=== PATIENT | female | born 1955 | race Caucasian/White ===

== ENCOUNTER 2017-08-11 16:04 | Observation (INO) | payer BC ==
[~2017-08-11] VITALS: Ht 170.2 cm; Wt 88.9 kg
[2017-08-11 16:27] LABS: BASOPHILS % (AUTO) 0.3 % (0.0-5.0); EOSINOPHILS % (AUTO) 0.2 % (0.0-8.0); HEMATOCRIT 35.7 % (36-48); MEAN CORPUSCULAR HEMOGLOBIN 30.7 pg (27.0-33.0); MEAN CORPUSCULAR HGB CONC 34.4 g/dL (32.0-36.0); MEAN CORPUSCULAR VOLUME 89.1 fL (79-99); MONOCYTES % (AUTO) 3.9 % (3.0-13.0); NEUTROPHILS % (AUTO) 68.6 % (40.0-77.0); PLATELET COUNT (AUTO) 265 K/uL (130-400); RED CELL DISTRIBUTION WIDTH 13.1 % (11.0-15.5); WHITE BLOOD COUNT (AUTO) 8.3 K/uL (4.8-10.8)
[2017-08-11 16:39] LABS: CREATININE 1.3 mg/dL (0.5-1.5)
[2017-08-11 16:40] LABS: INR 0.98 (0.85-1.15); PARTIAL THROMBOPLASTIN TIME 23.6 SEC (26.3-35.5); PROTHROMBIN TIME 10.3 SEC (9.6-11.6)
[2017-08-11 16:52] LABS: ALBUMIN 4.4 g/dL (3.5-5.0); BILIRUBIN,TOTAL 0.3 mg/dL (0.2-1.0); TOTAL PROTEIN, SERUM 8.2 g/dL (6.0-8.3)
[2017-08-11] MEDS ORDERED: ASPIRIN 325 MG TABLET ONE (17:12)
[2017-08-11] MEDS ORDERED: MAG HYDROX/AL HYDROX/SIMETH ES 30 ML SUSP UDCUP ONE (17:12)
[2017-08-11] MEDS ORDERED: NITROGLYCERIN 0.4 MG SL TAB SL ONE (17:13)
[2017-08-11] MEDS ORDERED: NITROGLYCERIN 1GM/1 INCH PACKET TD ONE (18:45)
[2017-08-11 20:01] VITALS: BP 135/59
[2017-08-11 22:57] LABS: CREATINE KINASE MB 0.7 ng/mL (0.5-3.6); CREATINE KINASE, TOTAL 80 U/L (21-232); MYOGLOBIN 47 ng/mL (10-92); TROPONIN I < 0.04 ng/mL (0.00-0.06)
[2017-08-11 23:49] VITALS: BP 123/54
[2017-08-12] MEDS ORDERED: LEVO125 PO (00:46)
[2017-08-12] MEDS ORDERED: METO50TA18 PO (00:47)
[2017-08-12] MEDS ORDERED: HYDR-3422 PO (00:47)
[2017-08-12] MEDS ORDERED: VENL150C2 PO (00:47)
[2017-08-12] MEDS ORDERED: METR500T PO (00:47)
[2017-08-12] MEDS ORDERED: POTA20TA10 PO (00:47)
[2017-08-12] MEDS ORDERED: MULT-1192 PO (00:47)
[2017-08-12] MEDS ORDERED: GLUC-148 PO (00:47)
[2017-08-12] MEDS ORDERED: CYCL10TA7 PO (00:47)
[2017-08-12] MEDS ORDERED: NAPR220C15 PO (00:47)
[2017-08-12] MEDS ORDERED: GINK30CA3 PO (00:47)
[2017-08-12] MEDS ORDERED: BUTA1CAP49 PO (00:47)
[2017-08-12] MEDS ORDERED: LISI1TAB13 PO (00:47)
[2017-08-12] MEDS ORDERED: MAGN30TA2 PO (00:47)
[2017-08-12] MEDS ORDERED: ALPR1TAB2 PO (00:47)
[2017-08-12] MEDS ORDERED: CHOL100046 PO (00:47)
[2017-08-12] MEDS ORDERED: ONDANSETRON HCL MDV 20ML 2 MG/ML VIAL IVP PRN (01:00)
[2017-08-12] MEDS ORDERED: POTASSIUM CHLORIDE 20MEQ/100ML 100 ML IV PRN (01:00)
[2017-08-12] MEDS ORDERED: ACETAMINOPHEN 325 MG TAB PO PRN (01:00)
[2017-08-12] MEDS ORDERED: LACTULOSE 20 GM/30 ML UDCUP PO PRN (01:00)
[2017-08-12] MEDS ORDERED: POTASSIUM CHLORIDE 20 MEQ ERTAB PO PRN (01:00)
[2017-08-12] MEDS ORDERED: POTASSIUM CHLORIDE 10% ELIXIR 20 MEQ/15 ML UDCUP PO PRN (01:00)
[2017-08-12] MEDS ORDERED: LIDOCAINE HCL-MPF 1% 2ML VIAL IVP PRN (01:00)
[2017-08-12] MEDS ORDERED: IPRATROPIUM/ALBUTEROL SULFATE 3 ML SOLUTION IH PRN (01:00)
[2017-08-12] MEDS ORDERED: HYDRALAZINE HCL 20 MG/ML VIAL IV PRN (01:00)
[2017-08-12 03:37] VITALS: BP 132/51
[2017-08-12 04:20] LABS: HEMATOCRIT 32.4 % (36-48); MEAN CORPUSCULAR HGB CONC 35.1 g/dL (32.0-36.0); MEAN CORPUSCULAR VOLUME 88.2 fL (79-99); PLATELET COUNT (AUTO) 217 K/uL (130-400); RED BLOOD CELL COUNT(AUTO) 3.68 MIL/uL (4.00-5.50); RED CELL DISTRIBUTION WIDTH 13.3 % (11.0-15.5); WHITE BLOOD COUNT (AUTO) 5.2 K/uL (4.8-10.8)
[2017-08-12 04:49] LABS: CARBON DIOXIDE 32 mmol/L (21-32); CHLORIDE 103 mmol/L (101-111); CHOLESTEROL 201 mg/dL (<200); CREATINE KINASE MB 0.5 ng/mL (0.5-3.6); CREATINE KINASE, TOTAL 71 U/L (21-232); CREATININE 1.2 mg/dL (0.5-1.5); GLOMERULAR FILTR. RATE CALC 48 mL/min (>60); GLUCOSE,RANDOM 114 mg/dL (70-105); HDL CHOLESTEROL 52 mg/dL (35-85); LDL DIRECT 125 mg/dL (0-99); MYOGLOBIN 38 ng/mL (10-92); POTASSIUM 4.3 mmol/L (3.5-5.1); SODIUM SERUM 140 mmol/L (136-145); THYROID STIMULATING HORMONE 6.54 uIU/mL (0.36-3.74); TRIGLYCERIDES 131 mg/dL (30-200); TROPONIN I < 0.04 ng/mL (0.00-0.06); UREA NITROGEN, BLOOD 24 mg/dL (7-18)
[2017-08-12] MEDS ORDERED: BUTALB/ACETAMINOPHEN/CAFFEINE 1 EACH TABLET PO PRN (07:15)
[2017-08-12 08:10] VITALS: BP 110/51
[2017-08-12] MEDS ORDERED: NAPROXEN 250 MG TAB PO SCH (08:13)
[2017-08-12] MEDS ORDERED: POTASSIUM BICARB/CIT AC 25 MEQ TABLET.EFF PO SCH (08:14)
[2017-08-12] MEDS ORDERED: LEVOTHYROXINE 125 MCG TABLET PO SCH (08:15)
[2017-08-12] MEDS ORDERED: MULTIVITAMIN TABLET PO SCH (09:00)
[2017-08-12] MEDS ORDERED: ASPIRIN 325 MG TABLET PO SCH (09:00)
[2017-08-12] MEDS ORDERED: GINKGO BILOBA LEAF EXTRACT 30 MG PO SCH (09:00)
[2017-08-12] MEDS ORDERED: FAMOTIDINE 20MG TAB 20 MG TAB PO SCH (09:00)
[2017-08-12] MEDS ORDERED: GLUCOSAMINE-CHONDROITIN PO SCH (09:00)
[2017-08-12] MEDS ORDERED: METOPROLOL TARTRATE 25 MG TAB PO SCH (09:00)
[2017-08-12] MEDS ORDERED: CYCLOBENZAPRINE HCL 10 MG TABLET PO SCH (09:00)
[2017-08-12] MEDS ORDERED: VENLAFAXINE HCL XR 150 MG CAP PO SCH (09:00)
[2017-08-12] MEDS ORDERED: METRONIDAZOLE 500 MG TABLET PO SCH (09:00)
[2017-08-12] MEDS ORDERED: CHOLECALCIFEROL 1000 UNIT PO SCH (09:00)
[2017-08-12] MEDS ORDERED: HYDROCHLOROTHIAZIDE 25 MG TABLET PO SCH (09:00)
[2017-08-12] MEDS ORDERED: MAGNESIUM CHLORIDE 70 MG TABLET.SA PO SCH (09:00)
[2017-08-12] MEDS ORDERED: ENOXAPARIN SODIUM 40 MG/0.4 ML SYRINGE SQ SCH (09:00)
[2017-08-12] MEDS ORDERED: METOPROLOL TARTRATE 50 MG TAB PO SCH (09:00)
[2017-08-12] MEDS ORDERED: LISINOPRIL 20 MG TABLET PO SCH (09:00)
[2017-08-12] MEDS ORDERED: REGADENOSON 0.4 MG/5 ML PF SYG IVP SCH (12:00)
[2017-08-12 12:10] VITALS: BP 123/62
[2017-08-12] MEDS ORDERED: RIVA20TA PO (12:26)
[2017-08-12 16:00] VITALS: BP 127/72
[2017-08-12] MEDS ORDERED: HYDROXYZINE HCL 25 MG TABLET PO SCH (21:00)
[2017-08-12] MEDS ORDERED: VENLAFAXINE HCL XR 37.5 MG CAP PO SCH (21:00)
[2017-08-12] MEDS ORDERED: ALPRAZOLAM 1 MG TAB PO SCH (21:00)
== END 2017-08-12 19:47 | disposition home or self-care (01) ==
LOC: EDH 16:04 → EDHIP 17:59 → 2DH 20:02
PROVIDERS: ADMIT Internal Medicine; ATTEND Internal Medicine
DX: R07.89 Other chest pain (principal); F32.9 Major depressive disorder, single episode, unspecified; E03.9 Hypothyroidism, unspecified; F43.10 Post-traumatic stress disorder, unspecified; Z90.710 Acquired absence of both cervix and uterus; Z82.49 Family history of ischemic heart disease and other diseases of the circulatory system; R00.2 Palpitations; Z86.73 Personal history of transient ischemic attack (TIA), and cerebral infarction without residual deficits; I20.0 Unstable angina; I48.0 Paroxysmal atrial fibrillation; I10 Essential (primary) hypertension; G47.00 Insomnia, unspecified; G20 Parkinson's disease; E78.5 Hyperlipidemia, unspecified; E11.9 Type 2 diabetes mellitus without complications
CPT/HCPCS: 36415 ×2; 76770; 78452; 80048; 80053; 80061; 82550 ×3; 82553 ×3; 83874 ×2; 84439; 84443; 84484 ×3; 85025; 85027; 85610; 85730; 93005 ×3; 93017; 93306; 94664; 99291; A9500 ×2; G0378 ×26; J2785; 96374

== ENCOUNTER → 2018-05-30 | Outpatient (CLI) | payer BC ==
[~2018-05-30] MED LIST: ALPR1TAB2 PO; BUTA1CAP49 PO; CHOL100046 PO; CYCL10TA7 PO; GINK30CA3 PO; GLUC-148 PO; HYDR-3422 PO; LEVO125 PO; LISI1TAB13 PO; MAGN30TA2 PO; METO50TA18 PO; METR500T PO; MULT-1192 PO; NAPR220C15 PO; POTA20TA10 PO; RIVA20TA PO; VENL150C2 PO
== END | disposition home or self-care (01) ==
LOC: SHCH 08:53
PROVIDERS: ATTEND Internal Medicine Cardiovascular Disease
DX: Z09 Encounter for follow-up examination after completed treatment for conditions other than malignant neoplasm (principal)
CPT/HCPCS: 93971

== ENCOUNTER 2019-11-28 17:14 | Observation (INO) | payer OTHER, BC ==
[~2019-11-28] VITALS: Ht 165.1 cm; Wt 88.7 kg
[~2019-11-28 17:14] MED LIST changes: -LISI1TAB13 PO; +LISI1TAB29 PO
[2019-11-28 18:37] LABS: BASOPHILS % (AUTO) 0.3 % (0.0-5.0); EOSINOPHILS % (AUTO) 0.3 % (0.0-8.0); HEMATOCRIT 30.1 % (36-48); LYMPHOCYTES % (AUTO) 35.8 % (21.0-51.0); MEAN CORPUSCULAR HEMOGLOBIN 29.3 pg (27.0-33.0); MEAN CORPUSCULAR HGB CONC 31.9 g/dL (32.0-36.0); MEAN CORPUSCULAR VOLUME 91.8 fL (79-99); MONOCYTES % (AUTO) 7.3 % (3.0-13.0); PLATELET COUNT (AUTO) 229 K/uL (130-400); RED BLOOD CELL COUNT(AUTO) 3.28 MIL/uL (4.00-5.50); RED CELL DISTRIBUTION WIDTH 13.8 % (11.0-15.5)
[2019-11-28 18:52] LABS: CREATININE 1.1 mg/dL (0.5-1.5); POTASSIUM 3.8 mmol/L (3.5-5.1)
[2019-11-28 18:56] LABS: INR 0.95 (0.85-1.15); PARTIAL THROMBOPLASTIN TIME 24.7 SEC (26.3-35.5); PROTHROMBIN TIME 10.3 SEC (9.6-11.6)
[2019-11-28 18:57] LABS: BILIRUBIN,TOTAL 0.2 mg/dL (0.2-1.0); TOTAL PROTEIN, SERUM 7.5 g/dL (6.0-8.3)
[2019-11-28] MEDS ORDERED: ACETAMINOPHEN 325 MG TAB PO PRN ×2 (19:15)
[2019-11-28] MEDS ORDERED: ONDANSETRON HCL 4 MG/2 ML VIAL IV PRN (19:15)
[2019-11-28] MEDS ORDERED: CYCLOBENZAPRINE HCL 10 MG TABLET ONE (23:31)
[2019-11-28] MEDS ORDERED: ALPRAZOLAM 1 MG TAB ONE (23:32)
[2019-11-28] MEDS ORDERED: ACETAMINOPHEN 325 MG TAB ONE (23:45)
[2019-11-29 02:25] VITALS: BP 136/70
--- NOTE | 2019-11-29 02:30 | NUR ---
ADMIT PT ADMITTED TO ROOM 320, AAOX3. CLAIMS OF HEADACHE BUT REFUSED CLAIMS SHE DOES NOT WANT ANY ADDITIONAL PAIN MEDS AT THIS TIME. PT STATED SHE JUST NEEDS TO SLEEP. ADMISSION CARE DONE. ADMISSION DATA BASE COMPLETED. ORIENTED TO ROOM AND UNIT. FALL PRECAUTIONS RE-ITERATED. CALL LIGHT WITHIN REACH. IN FOR MORE CARE AND MANAGEMENT. Addendum: 11/29/19 at 0456 by SHASHI MAHARAJ RN RN Amended: Links added.
--- NOTE | 2019-11-29 06:25 | NUR ---
TESTS AWAKENED PT AND NASAL SWABS DONE FOR COVID TEST. SENT TO LAB FOR ANALYSIS. PT CLAIMS OF THE SAME NUMB SENSATIONS ON LOWER EXTREMITIES. REQUESTED TO TURN OFF SCD'S SHE IS ON XARELTO PO. SHE CLAIMS SHE TURNS TOO MUCH IN BED AND GETS TANGLED. TURNED OFF SCD'S FOR NOW. KEPT RESTED AND COMFORTABLE IN BED. CALL LIGHT WITHIN REACH. FOR MORE CARE.
--- NOTE | 2019-11-29 07:26 | NUR ---
MD DR MADRIGAL ON THE FLOOR MAKING ROUNDS. INFORMED OF NEW CONSULT. STATED WILL COME BACK TO SEE PT.
[2019-11-29 07:59] VITALS: BP 118/56
[2019-11-29] MEDS ORDERED: NAPROXEN 250 MG TAB PO SCH (08:00)
[2019-11-29] MEDS ORDERED: MAGNESIUM 30 MG PO SCH (09:00)
[2019-11-29] MEDS ORDERED: VENLAFAXINE HCL XR 37.5 MG CAP PO SCH (09:00)
[2019-11-29] MEDS ORDERED: LEVOTHYROXINE 125 MCG TABLET PO SCH (09:00)
[2019-11-29] MEDS ORDERED: CYCLOBENZAPRINE HCL 10 MG TABLET PO SCH (09:00)
[2019-11-29] MEDS ORDERED: LISINOPRIL 20 MG TABLET PO SCH (09:00)
[2019-11-29] MEDS ORDERED: METOPROLOL TARTRATE 50 MG TAB PO SCH (09:00)
[2019-11-29] MEDS ORDERED: HYDROCHLOROTHIAZIDE 25 MG TABLET PO SCH (09:00)
[2019-11-29] MEDS ORDERED: RIVAROXABAN 20 MG TABLET PO SCH (09:00)
--- NOTE | 2019-11-29 11:01 | NUR ---
MET W PATIENT AT BEDSIDE FOR DC PLANNING AND SPOKE BRIEFLY TO DR. MADRIGAL AND DR. Lyudmila OLSEN PLAN OF CARE PATIENT WILL BE DISCHARGED TODAY IN OBS STATUS, [facility] IS INDP AND ACTIVE, DENIES DC NEEDS AND WANTS TO GO HOME, [facility] HAS FALLS AT HOME, [facility] HAS NO NEEDS DETAILED CM ASSESSMENT DEFERRED AT THIS TIME Addendum: 11/29/19 at 1104 by GAVIN CLARKE RN CM Amended: Links added.
[2019-11-29] MEDS ORDERED: HYDROXYZINE HCL 25 MG TABLET PO SCH (21:00)
[2019-11-29] MEDS ORDERED: ALPRAZOLAM 1 MG TAB PO SCH (21:00)
== END 2019-11-29 14:50 | disposition home or self-care (01) ==
LOC: EDH 17:14 → EDHIP 17:15 → OBSVTOIN 17:15 → INTOOBSV 17:15 → 3CH 11-29 00:41
PROVIDERS: ADMIT Internal Medicine; ATTEND Internal Medicine
DX: R15.9 Full incontinence of feces (principal); Z20.828 Contact with and (suspected) exposure to other viral communicable diseases; G20 Parkinson's disease; G62.9 Polyneuropathy, unspecified; E03.9 Hypothyroidism, unspecified; I48.91 Unspecified atrial fibrillation; M48.061 Spinal stenosis, lumbar region without neurogenic claudication; G83.4 Cauda equina syndrome; G56.00 Carpal tunnel syndrome, unspecified upper limb; F43.10 Post-traumatic stress disorder, unspecified; G43.909 Migraine, unspecified, not intractable, without status migrainosus; Z90.710 Acquired absence of both cervix and uterus
CPT/HCPCS: 36415; 72148; 80053; 85025; 85610; 85730; 87426; 99284; G0378 ×8; U0003

== ENCOUNTER → 2020-01-22 | Outpatient (CLI) | payer OTHER | END | disposition home or self-care (01) | LOC: SHCH 11:05 | PROVIDERS: ATTEND Internal Medicine Cardiovascular Disease | DX: Z09 Encounter for follow-up examination after completed treatment for conditions other than malignant neoplasm (principal); I77.1 Stricture of artery | CPT/HCPCS: 93971 ==

== ENCOUNTER 2020-03-04 11:04 | Observation (INO) | payer OTHER ==
[~2020-03-04 11:04] MED LIST changes: +BACL10TA PO; -BUTA1CAP49 PO; +CARB1TAB41 PO; -CHOL100046 PO; +CYAN-52 PO; +FERR324T4 PO; -GINK30CA3 PO; -GLUC-148 PO; +HYDR-4060 PO; -LEVO125 PO; +LEVO150T11 PO; +LIDO1ADH82 TP; -MAGN30TA2 PO; +MAGN400T51 PO; +METO-391 PO; -METO50TA18 PO; -METR500T PO; -MULT-1192 PO; -NAPR220C15 PO; +OMEP40CA13 PO; +PILOCARPINE PO; +POTA-79 PO; -POTA20TA10 PO; +VENL-63 PO; -VENL150C2 PO; +VITAMIN D PO
[2020-03-04 11:51] LABS: BASOPHILS % (AUTO) 0.4 % (0.0-5.0); EOSINOPHILS % (AUTO) 0.4 % (0.0-8.0); HEMATOCRIT 29.2 % (36-48); LYMPHOCYTES % (AUTO) 30.9 % (21.0-51.0); MEAN CORPUSCULAR HGB CONC 31.8 g/dL (32.0-36.0); MONOCYTES % (AUTO) 5.8 % (3.0-13.0); NEUTROPHILS % (AUTO) 62.1 % (40.0-77.0); PLATELET COUNT (AUTO) 349 K/uL (130-400); RED BLOOD CELL COUNT(AUTO) 3.21 MIL/uL (4.00-5.50); RED CELL DISTRIBUTION WIDTH 15.8 % (11.0-15.5); WHITE BLOOD COUNT (AUTO) 4.8 K/uL (4.8-10.8)
[2020-03-04 12:02] LABS: CREATININE 1.3 mg/dL (0.5-1.5); INR 1.26 (0.85-1.15); PARTIAL THROMBOPLASTIN TIME 41.4 SEC (26.3-35.5); POTASSIUM 4.2 mmol/L (3.5-5.1); PROTHROMBIN TIME 13.5 SEC (9.6-11.6)
[2020-03-04 12:14] LABS: ALBUMIN 4.2 g/dL (3.5-5.0); BILIRUBIN,TOTAL 0.3 mg/dL (0.2-1.0); CRP QUANTITATIVE 12.3 mg/L (0.00-9.0); TOTAL PROTEIN, SERUM 7.9 g/dL (6.0-8.3)
[2020-03-04 12:24] LABS: RETICULOCYTE % (AUTO) 2.58 % (0.42-2.23)
[2020-03-04 12:48] LABS: APPEARANCE,URINE Clear (CLEAR); BILIRUBIN,URINE Negative (NEGATIVE); COLOR,URINE Yellow (YELLOW); GLUCOSE, URINE (UA) Negative (NEGATIVE); KETONES,URINE Negative (NEGATIVE); LEUKOCYTE ESTERASE ,URINE Negative (NEGATIVE); NITRATE,URINE Negative (NEGATIVE); OCCULT BLOOD,URINE Negative (NEGATIVE); PROTEIN,URINE Negative (NEGATIVE); UROBILINOGEN,URINE 0.2 mg/dL (0.2-1.0)
[2020-03-04] MEDS ORDERED: ONDANSETRON HCL 4 MG/2 ML VIAL IV PRN (19:30)
[2020-03-04] MEDS ORDERED: LACTULOSE 20 GM/30 ML UDCUP PO PRN (19:30)
[2020-03-04] MEDS ORDERED: ACETAMINOPHEN 325 MG TAB PO PRN ×2 (19:30)
[2020-03-04] MEDS ORDERED: FAMOTIDINE 20MG TAB 20 MG TAB PO SCH (21:00)
[2020-03-04] MEDS ORDERED: FAMOTIDINE 20MG TAB 20 MG TAB ONE (21:29)
[2020-03-05 03:33] LABS: BASOPHILS % (AUTO) 0.6 % (0.0-5.0); EOSINOPHILS % (AUTO) 0.4 % (0.0-8.0); HEMATOCRIT 29.4 % (36-48); LYMPHOCYTES % (AUTO) 35.9 % (21.0-51.0); MEAN CORPUSCULAR HEMOGLOBIN 28.2 pg (27.0-33.0); MONOCYTES % (AUTO) 7.2 % (3.0-13.0); NEUTROPHILS % (AUTO) 55.5 % (40.0-77.0); PLATELET COUNT (AUTO) 348 K/uL (130-400); RED BLOOD CELL COUNT(AUTO) 3.23 MIL/uL (4.00-5.50); RED CELL DISTRIBUTION WIDTH 15.7 % (11.0-15.5)
[2020-03-05 03:39] LABS: CREATININE 1.3 mg/dL (0.5-1.5); POTASSIUM 3.9 mmol/L (3.5-5.1)
[2020-03-05 04:00] VITALS: BP 125/63
[2020-03-05 08:00] VITALS: BP_SYST 108; BP_SYST 110; BP_SYST 93; BP_DIAS 58; BP_DIAS 66; BP_DIAS 69
[2020-03-05 09:00] LABS: ABG BASE EXCESS 2.3 mmol/L (-2.0-3.0); ABG HCO3 25.4 mmol/L (21.0-28.0); ABG OXYGEN SATURATION 97.4 % (95.0-99.0); ABG PCO2 35 mmHg (32-45)
[2020-03-05] MEDS ORDERED: RIVAROXABAN 20 MG TABLET PO SCH (09:00)
[2020-03-05] MEDS ORDERED: ENOXAPARIN SODIUM 40 MG/0.4 ML SYRINGE SQ SCH (09:00)
[2020-03-05 12:00] VITALS: BP 123/78
--- NOTE | 2020-03-05 12:15 | NUR ---
DISCHARGE PATIENT GIVEN DISCHARGE INSTRUCTIONS VIA TEACH BACK. 20G PIV TO RAC DISCONTINUED, TIP INTACT. TELE REMOVED AND RETURNED TO TELEMETRY. PATIENT TO FOLLOW UP WITH PCP IN 3 TO 5 DAYS. NO NEW RX GIVEN, PATIENT TO CONTINUE HOME MEDICATIONS ORDERED BY MD. PATIENT STABLE AT THIS TIME. PATIENT WHEELED TO [facility] BY LUISITO CHAWLA FOR DISCHARGE.
== END 2020-03-05 12:40 | disposition home or self-care (01) ==
LOC: EDH 11:04 → EDHIP 19:25 → 3AH 03-05 00:09
PROVIDERS: ADMIT Internal Medicine; ATTEND Internal Medicine
DX: I95.1 Orthostatic hypotension (principal); Z20.828 Contact with and (suspected) exposure to other viral communicable diseases; R55 Syncope and collapse; R79.1 Abnormal coagulation profile; G20 Parkinson's disease; F43.10 Post-traumatic stress disorder, unspecified; G24.9 Dystonia, unspecified; F32.9 Major depressive disorder, single episode, unspecified; G35 Multiple sclerosis; G43.909 Migraine, unspecified, not intractable, without status migrainosus; E03.9 Hypothyroidism, unspecified; I48.91 Unspecified atrial fibrillation; Z96.651 Presence of right artificial knee joint; Z90.710 Acquired absence of both cervix and uterus; Z90.49 Acquired absence of other specified parts of digestive tract; Z98.51 Tubal ligation status; Z79.899 Other long term (current) drug therapy; Z88.3 Allergy status to other anti-infective agents; Z88.5 Allergy status to narcotic agent; Z88.8 Allergy status to other drugs, medicaments and biological substances; Z91.048 Other nonmedicinal substance allergy status
CPT/HCPCS: 36415 ×2; 36600; 70450; 71045; 80048; 80053; 81003; 82550; 82803; 83605; 83690; 83735; 84484; 85025 ×2; 85045; 85378; 85610; 85730; 86140; 87426; 87804 ×2; 93005; 93970; 99285; G0378 ×18; U0003

== ENCOUNTER → 2020-06-17 | Outpatient (CLI) | payer OTHER ==
[~2020-06-17] MED LIST changes: +IOHEXOL-350 50ML VIAL IV ONE
== END | disposition home or self-care (01) ==
LOC: RAH 09:40
PROVIDERS: ATTEND Internal Medicine Cardiovascular Disease
DX: I26.99 Other pulmonary embolism without acute cor pulmonale (principal)
CPT/HCPCS: 71275; Q9967

== ENCOUNTER 2020-12-25 07:53 | Emergency (ER) | payer OTHER ==
[~2020-12-25] VITALS: Ht 165.1 cm; Wt 90.7 kg
[~2020-12-25 07:53] MED LIST changes: -IOHEXOL-350 50ML VIAL IV ONE; -OMEP40CA13 PO; +OMEP40CA21 PO
[2020-12-25 08:24] LABS: BASOPHILS % (AUTO) 0.3 % (0.0-5.0); HEMATOCRIT 33.5 % (36-48); LYMPHOCYTES % (AUTO) 29.9 % (21.0-51.0); MEAN CORPUSCULAR HEMOGLOBIN 29.9 pg (27.0-33.0); MEAN CORPUSCULAR HGB CONC 32.2 g/dL (32.0-36.0); MEAN CORPUSCULAR VOLUME 92.8 fL (79-99); MONOCYTES % (AUTO) 5.8 % (3.0-13.0); NEUTROPHILS % (AUTO) 63.5 % (40.0-77.0); PLATELET COUNT (AUTO) 227 K/uL (130-400); RED BLOOD CELL COUNT(AUTO) 3.61 MIL/uL (4.00-5.50); RED CELL DISTRIBUTION WIDTH 13.8 % (11.0-15.5); WHITE BLOOD COUNT (AUTO) 3.9 K/uL (4.8-10.8)
[2020-12-25 08:37] LABS: INR 1.17 (0.85-1.15); PROTHROMBIN TIME 12.6 SEC (9.6-11.6)
[2020-12-25 08:41] LABS: ALBUMIN 3.9 g/dL (3.5-5.0); BILIRUBIN,TOTAL 0.3 mg/dL (0.2-1.0); CREATININE 1.1 mg/dL (0.5-1.5); POTASSIUM 4.4 mmol/L (3.5-5.1); TOTAL PROTEIN, SERUM 7.4 g/dL (6.0-8.3)
[2020-12-25] MEDS ORDERED: LIDOCAINE HCL 2% VISCOUS 15 ML UDCUP ONE (08:42)
[2020-12-25 08:53] VITALS: BP 150/75
[2020-12-25 09:38] VITALS: BP 138/73
== END 2020-12-25 09:39 | disposition home or self-care (01) ==
LOC: EDH 07:53
DX: R04.0 Epistaxis (principal); E03.9 Hypothyroidism, unspecified; F32.9 Major depressive disorder, single episode, unspecified; F43.10 Post-traumatic stress disorder, unspecified; G20 Parkinson's disease; I10 Essential (primary) hypertension; F41.9 Anxiety disorder, unspecified; G43.909 Migraine, unspecified, not intractable, without status migrainosus; I48.91 Unspecified atrial fibrillation; M79.7 Fibromyalgia; Z79.01 Long term (current) use of anticoagulants; Z79.899 Other long term (current) drug therapy; Z88.2 Allergy status to sulfonamides; Z88.5 Allergy status to narcotic agent; Z88.8 Allergy status to other drugs, medicaments and biological substances
CPT/HCPCS: 36415; 80053; 85025; 85610